=== PATIENT | female | born 1985 | race Caucasian/White ===

== ENCOUNTER 2025-07-25 09:04 | Outpatient (CLI) | payer BC, SELFPAY | END 2025-07-25 09:05 | disposition home or self-care (01) | PROVIDERS: PCP Family Medicine; Visit Provider Family Medicine | DX: Z13.220 Encounter for screening for lipoid disorders (principal); R53.83 Other fatigue; Z13.9 Encounter for screening, unspecified | CPT/HCPCS: 80053; 80061 ==